=== PATIENT | female | born 1990 | race Asian ===

== ENCOUNTER 2016-07-30 12:59 | Inpatient (IN) | payer MEDICAID, OTHER ==
[~2016-07-30] VITALS: Ht 160 cm; Wt 77.3 kg
[2016-07-30] MEDS ORDERED: LACTATED RINGER'S 1,000 ML IV PRN (14:00)
[2016-07-30] MEDS ORDERED: DINOPROSTONE 10 MG VAG SUPP VAG ONE (15:00)
[2016-07-30] MEDS ORDERED: CARBOPROST 250 MCG INJ IM PRN (15:00)
[2016-07-30] MEDS ORDERED: OXYTOCIN 30 UNITS/LR 500 ML IV SCH ×3 (15:00→16:00)
[2016-07-30] MEDS ORDERED: METHYLERGONOVINE 0.2 MG INJ IM PRN (15:00)
[2016-07-30] MEDS ORDERED: LIDOCAINE 1% (MPF) 30 ML INJ INJ PRN (15:00)
[2016-07-30] MEDS ORDERED: OXYTOCIN 30 UNITS/LR 500 ML IV PRN (15:00)
[2016-07-30] MEDS ORDERED: MISOPROSTOL 200 MCG TAB PR PRN (15:00)
[2016-07-30 15:30] LABS: ADD SCAN DIFF NO
[2016-07-30 15:38] LABS: BASOPHILS % 0.4 % (0.0-2.0); EOSINOPHILS # 0.3 10^3/ul (0.0-0.5); EOSINOPHILS % 2.8 % (0.0-7.0); HEMATOCRIT 34.6 % (37.0-47.0); HEMOGLOBIN 11.4 g/dl (12.0-16.0); LYMPHOCYTES # 1.6 10^3/ul (0.8-2.9); LYMPHOCYTES % 15.5 % (15.0-51.0); MEAN CORPUSCULAR HEMOGLOBIN 29.4 pg (29.0-33.0); MEAN CORPUSCULAR HGB CONC 32.9 g/dl (32.0-37.0); MEAN CORPUSCULAR VOLUME 89.2 fl (82.0-101.0); MEAN PLATELET VOLUME 10.3 fl (7.4-10.4); MONOCYTE # 0.9 10^3/ul (0.3-0.9); MONOCYTES % 8.9 % (0.0-11.0); NEUTROPHIL # 7.3 10^3/ul (1.6-7.5); NEUTROPHILS % 71.4 % (39.0-77.0); PLATELET COUNT 271 10^3/UL (140-415); RED BLOOD COUNT 3.88 10^6/ul (4.20-5.40); RED CELL DISTRIBUTION WIDTH 13.1 % (11.5-14.5); WHITE BLOOD COUNT 10.3 10^3/ul (4.8-10.8)
[2016-07-30 15:49] LABS: INR 0.9; PROTIME 12.1 Sec (12.2-14.2); PT RATIO 0.9
[2016-07-30 15:50] LABS: PARTIAL THROMBOPLASTIN TIME 25.7 Sec (25.0-35.0)
[2016-07-30] MEDS: LACTATED RINGER'S 1,000 ML IV SCH (16:21)
[2016-07-31] MEDS: LACTATED RINGER'S 1,000 ML IV SCH ×6 (00:09→22:17)
[2016-07-31] MEDS: BUTORPHANOL 2 MG INJ IV PRN ×3 (01:12→05:31)
[2016-07-31] MEDS ORDERED: AMPICILLIN 2 GM/NS (PMX) 100 ML IV ONE (07:00)
[2016-07-31] MEDS: AMPICILLIN 1 GM/NS (PMX) 50 ML IV SCH ×4 (11:35→22:49)
[2016-07-31] MEDS ORDERED: LACTATED RINGER'S 1,000 ML IV ONE (17:47)
[2016-07-31] MEDS ORDERED: PROCHLORPERAZINE 10 MG INJ IV PRN (18:00)
[2016-07-31] MEDS ORDERED: morphine 2 MG INJ IV PRN ×2 (18:00)
[2016-07-31] MEDS ORDERED: NALOXONE (0.4 MG/ML) INJ IV PRN (18:00)
[2016-07-31] MEDS ORDERED: ONDANSETRON 4 MG INJ IV PRN (18:00)
[2016-07-31] MEDS ORDERED: DIPHENHYDRAMINE 50 MG INJ IV PRN (18:00)
[2016-07-31] MEDS ORDERED: FENTAnyl 2MCG/ML-ROPIV 0.2% 100 ML BAG EPI SCH (18:00)
[2016-07-31] MEDS ORDERED: ONDANSETRON 4 MG INJ IV ONE (18:00)
[2016-07-31] MEDS ORDERED: CITRIC ACID/SODIUM CITRATE 15 ML CUP PO ONE (18:00)
[2016-07-31] MEDS ORDERED: KETOROLAC 30 MG INJ IV PRN (18:00)
[2016-08-01] MEDS: AMPICILLIN 1 GM/NS (PMX) 50 ML IV SCH (02:42)
--- NOTE | 2016-08-01 04:28 | HP ---
Date/Time of Note Date/Time of Note DATE: 08/01/16 TIME: 04:08 OB - History Hx of Present Free Text/Dictation 25 y.o primigravida was sent from office for srom at [id number] after confirmed srom which could been happened at 0700 07/30/16 ve 0.5 60% -2 clear fluid with mild u.c 2-6 min apart admitted for augmentation had unevenful course Chief Complaint: srom Estimated Due Date: Aug 09, 2016 : 1 Para: 0 Spontaneous : 0 Therapeutic : 0 Care: Good Care Ultrasounds: Normal mid trimester US Obstetrical Complications: None Medical Complications: None Past Family/Social History * Past Medical, Surgical, Family and Obstetric Histories reviewed from chart. Blood Type: O+ Rubella: immune RPR/VDRL: Negative GBS Status: Negative HBsAG: Negative OB Admission Exam Physical Exam HEENT: WNL Heart: Rhythm Normal Lungs: Clear, Equal Abdomen: WNL Extremities: Normal Reflexes: Normal Cervical Dilatation: Fingertip Effacement: 50% Station: -2 Membranes: Ruptured Amniotic Fluid: Clear Heart Rate: 130's Accelerations: Accelerations Present Decelerations: No Decelerations Varibility: Moderate Contractions on Admission: < 5 Minutes Apart Intensity: Mild Last 72 hours Lab Results CBC & BMP 07/30/16 14:24 OB Assessment/Plan Reason for admission: rupture of membranes Other Assessment: IUP 38w4d Plan: Other (augmentation with pitocin) KAILASH LOUIS MD Aug 01, 2016 04:28
--- NOTE | 2016-08-01 04:32 | LDN ---
Date/Time of Note Date/Time of Note DATE: 08/01/16 TIME: 04:28 Delivery Summary normal vaginal delivery Weeks of Gestation 38w6d Placenta Delivered: Spontaneously Meconium: Light Episiotomy: No Perineal laceration: 1 Laceration repair: 000ch gut vagina laceration Anesthesia type: Epidural Sponge & Needle done & correct: Yes All needle counts correct: Yes Any foreign bodies felt in the: No Problems: Infant Delivery Information Sex Infant Sex: female Apgars 1 Minute: 8 5 Minute: 9 10 Minute: 9 Suctioning Nose & mouth suctioned at melita: Yes Delee suction performed: No Umbilical Cord Umbilical cord with: 3 Vessels Cord presentations: no nuchal cord Cord Blood was obtained: Yes Mother & Baby Disposition Disposition Mom & Baby to Maternity; Good: Yes Mom transferred to: Other () Baby to NICU: No KAILASH LOUIS MD Aug 01, 2016 04:32
[2016-08-01 05:33] VITALS: BP 115/66; PULSE 76; RESP 18
[2016-08-01] MEDS ORDERED: ZOLPIDEM 5 MG TAB PO PRN (06:00)
[2016-08-01] MEDS ORDERED: OXYTOCIN 30 UNITS/LR 500 ML IV PRN (06:00)
[2016-08-01] MEDS ORDERED: OXYCODONE/ASPIRIN (4.88/325) TAB PO PRN ×2 (06:00)
[2016-08-01] MEDS ORDERED: LANOLIN 7 GM TUBE TOP PRN (06:00)
[2016-08-01] MEDS ORDERED: WITCH HAZEL/GLYCERIN PAD PR PRN (06:00)
[2016-08-01] MEDS ORDERED: BENZOCAINE 20% 56 ML SPRAY TOP PRN (06:00)
[2016-08-01] MEDS ORDERED: MISOPROSTOL 200 MCG TAB PR PRN (06:00)
[2016-08-01] MEDS ORDERED: CARBOPROST 250 MCG INJ IM PRN (06:00)
[2016-08-01] MEDS ORDERED: METHYLERGONOVINE 0.2 MG INJ IM PRN (06:00)
[2016-08-01] MEDS: IBUPROFEN 600 MG TAB PO SCH ×4 (06:01→23:43)
[2016-08-01 08:20] VITALS: BP 103/56; PULSE 77; RESP 18
[2016-08-01] MEDS: SENNA/DOCUSATE NA (8.6MG/50MG) TAB PO SCH ×2 (09:34→20:58)
[2016-08-01] MEDS ORDERED: OXYTOCIN 30 UNITS/LR 500 ML IV SCH (10:00)
[2016-08-01 12:10] VITALS: BP 100/52; PULSE 70; RESP 16
[2016-08-01 16:00] VITALS: BP 109/79; PULSE 74; RESP 17
[2016-08-01 20:00] VITALS: BP_SYST 113; BP_SYST 115; BP_DIAS 54; BP_DIAS 75; PULSE 73; PULSE 81; RESP 18
[2016-08-02] VITALS: BP 108/72; PULSE 69; RESP 18
[2016-08-02 04:15] VITALS: BP 124/75; PULSE 68; RESP 18
[2016-08-02] MEDS: IBUPROFEN 600 MG TAB PO SCH ×3 (05:44→17:50)
[2016-08-02 07:45] VITALS: BP 124/63; PULSE 60; RESP 17
[2016-08-02 09:49] LABS: ADD SCAN DIFF NO; BASOPHILS % 0.4 % (0.0-2.0); EOSINOPHILS # 0.4 10^3/ul (0.0-0.5); EOSINOPHILS % 3.2 % (0.0-7.0); HEMATOCRIT 31.2 % (37.0-47.0); HEMOGLOBIN 10.1 g/dl (12.0-16.0); LYMPHOCYTES # 1.9 10^3/ul (0.8-2.9); LYMPHOCYTES % 16.7 % (15.0-51.0); MEAN CORPUSCULAR HEMOGLOBIN 29.4 pg (29.0-33.0); MEAN CORPUSCULAR HGB CONC 32.4 g/dl (32.0-37.0); MEAN PLATELET VOLUME 9.7 fl (7.4-10.4); MONOCYTE # 0.9 10^3/ul (0.3-0.9); MONOCYTES % 7.7 % (0.0-11.0); NEUTROPHILS % 71.5 % (39.0-77.0); PLATELET COUNT 231 10^3/UL (140-415); RED BLOOD COUNT 3.43 10^6/ul (4.20-5.40); RED CELL DISTRIBUTION WIDTH 13.2 % (11.5-14.5); WHITE BLOOD COUNT 11.1 10^3/ul (4.8-10.8)
[2016-08-02] MEDS: SENNA/DOCUSATE NA (8.6MG/50MG) TAB PO SCH ×2 (10:03→21:22)
[2016-08-02 15:45] VITALS: BP 127/78; PULSE 57; RESP 18
[2016-08-02 20:10] VITALS: BP 110/70; PULSE 64; RESP 18
--- NOTE | 2016-08-02 21:00 | PN ---
Date/Time of Note Date/Time of Note DATE: 08/02/16 TIME: 20:58 OB Subjective Subjective Subjective DOING OK NO C/O OB Objective Objective Objective vss afebrile fundus firm lochia min ext neg OB Assessment/Plan Other Assessment: stable post normal vaginal delivery #1` Other plan: d/s home in am KAILASH LOUIS MD Aug 02, 2016 21:00
[2016-08-03] MEDS: IBUPROFEN 600 MG TAB PO SCH ×3 (00:08→11:43)
[2016-08-03 04:20] VITALS: BP 121/75; PULSE 58; RESP 18
[2016-08-03 08:24] VITALS: BP 107/67; PULSE 57; RESP 19
[2016-08-03] MEDS: SENNA/DOCUSATE NA (8.6MG/50MG) TAB PO SCH (08:58)
[2016-08-03] MEDS ORDERED: DIPHTH/TET/ACEL PERTUSS (ADULT) 0.5 ML VIAL IM* ONE (09:00)
--- NOTE | 2016-08-03 15:04 | PD.PPDC ---
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
--- NOTE | 2016-08-03 15:07 | DS ---
Date/Time of Note Date/Time of Note DATE: 08/03/16 TIME: 15:05 Obstetrical Discharge Record Final Diagnosis Final Diagnosis: Term delivered Vaginal Delivery Obstetrical Delivery: Spontaneous, Laceration, Repaired Complications Augmentation: Yes Condition on Discharge Physical Assessment Last Vitals: vss afebrile fundus firm lochia min calf no tenderness Voiding: Yes Bowel Movement: Yes Breast: Soft, non-tender Fundus: Firm Calf Tenderness: No Patient Condition: Stable KAILASH LOUIS MD Aug 03, 2016 15:07
== END 2016-08-03 15:55 | disposition home or self-care (01) | DRG 775 ==
LOC: L-D 12:59 → PP1 08-01 05:33 → EDSTATUS 08-09 12:55
PROVIDERS: ADMIT Obstetrics & Gynecology; ATTEND Obstetrics & Gynecology
PROC: 10E0XZZ Delivery of Products of Conception, External Approach (ICD-10-PCS; principal; 2016-08-01)
PROC: 0HQ9XZZ Repair Perineum Skin, External Approach (ICD-10-PCS; 2016-08-01)
PROC: 3E0234Z Introduction of Serum, Toxoid and Vaccine into Muscle, Percutaneous Approach (ICD-10-PCS; 2016-08-03)
DX: O42.92 Full-term premature rupture of membranes, unspecified as to length of time between rupture and onset of labor (principal); O70.0 First degree perineal laceration during delivery; Z3A.38 38 weeks gestation of pregnancy; Z37.0 Single live birth; Z23 Encounter for immunization
CPT/HCPCS: 62319; 85025; 85610; 85730; 86592; 86900; 86901; 87340; 90715; J0290; J0595; J2405; J2590; J3010; J7120